=== PATIENT | male | born 1980 | race Hispanic/Latino ===

== ENCOUNTER 2022-02-27 06:27 | Day surgery (SDC) | payer OTHER ==
[2022-02-25 15:50] LABS: BASOPHILS % (AUTO) 0.2 % (0.0-5.0); EOSINOPHILS % (AUTO) 0.9 % (0.0-8.0); HEMATOCRIT 46.3 % (42-54); LYMPHOCYTES % (AUTO) 5.7 % (21.0-51.0); MEAN CORPUSCULAR HEMOGLOBIN 30.9 pg (27.0-33.0); MEAN CORPUSCULAR HGB CONC 31.5 g/dL (32.0-36.0); MEAN CORPUSCULAR VOLUME 98.1 fL (79-99); MONOCYTES % (AUTO) 5.4 % (3.0-13.0); NEUTROPHILS % (AUTO) 86.8 % (40.0-77.0); PLATELET COUNT (AUTO) 373 K/uL (130-400); RED BLOOD CELL COUNT(AUTO) 4.72 MIL/uL (4.50-6.20); RED CELL DISTRIBUTION WIDTH 13.8 % (11.0-15.5); WHITE BLOOD COUNT (AUTO) 13.2 K/uL (4.8-10.8)
[2022-02-25 16:12] LABS: INR 0.93 (0.85-1.15); PROTHROMBIN TIME 9.9 SEC (9.6-11.6)
[2022-02-25 16:13] LABS: PARTIAL THROMBOPLASTIN TIME 27.8 SEC (26.3-35.5)
[2022-02-25 16:26] LABS: CREATININE 0.9 mg/dL (0.5-1.5); POTASSIUM 4.4 mmol/L (3.5-5.1)
[2022-02-26 10:44] VITALS: BP 107/71
[~2022-02-27] VITALS: Ht 167.6 cm; Wt 62.1 kg
[2022-02-27] VITALS (17 sets, daily range): BP systolic 92–115; BP diastolic 49–73
[~2022-02-27 06:27] MED LIST: AMOX1TAB16 PO; CEFAZOLIN SODIUM 1 GM VIAL IVP SCH; GABA300C PO; LEVO750T46 PO; PRED20TA3 PO; TAMS-1 PO; URSO300C4 PO; VANC1IVPB IV
[2022-02-27] MEDS ORDERED: LACTATED RINGERS 1000ML 1,000 ML IV ONE (06:50)
[2022-02-27] MEDS ORDERED: LIDOCAINE 1%-EPI 1:100,000 20 ML VIAL IJ ONE (07:02)
[2022-02-27] MEDS ORDERED: FAMOTIDINE 20MG VIAL IV ONE (07:29)
[2022-02-27] MEDS ORDERED: FENTANYL CITRATE PF 50 MCG/1 ML 2ML VIAL ONE (07:39)
[2022-02-27] MEDS ORDERED: PROPOFOL 10 MG/ML 20ML VIAL IV ONE (07:39)
[2022-02-27] MEDS ORDERED: ROCURONIUM 10MG/1ML SYR 10 MG/ML ML ONE (07:39)
[2022-02-27] MEDS ORDERED: MIDAZOLAM HCL 1 MG/ML 2ML VIAL ONE (07:44)
[2022-02-27] MEDS ORDERED: ONDANSETRON 4MG INJ ONE (07:46)
[2022-02-27] MEDS ORDERED: MEPERIDINE-PF 25 MG/ML SYG ONE (08:18)
[2022-02-27] MEDS ORDERED: NEOSTIGMINE 5MG/5ML SYR IV ONE (09:06)
[2022-02-27] MEDS ORDERED: BACITRACIN 28.4 GM OINT TP ONE (09:17)
[2022-02-27] MEDS ORDERED: LIDOCAINE PF 100MG/5ML (2%) SYRINGE 5ML ONE (09:20)
== END 2022-02-27 11:10 | disposition home or self-care (01) ==
LOC: DAH 06:27
PROVIDERS: ATTEND Otolaryngology Plastic Surgery within the Head & Neck
DX: J86.0 Pyothorax with fistula (principal); I10 Essential (primary) hypertension; Z79.01 Long term (current) use of anticoagulants; Z79.899 Other long term (current) drug therapy; Z98.890 Other specified postprocedural states
CPT/HCPCS: 31820; 36415; 71045; 80048; 85025; 85610; 85730; 87635; 93005; A4215; A4221; A4222; A4223; A4649 ×2; A4663; A6260; C9803; J2001; J2175; J2250; J2405; J2704; J2710; J3010; J3490 ×2; J7120

== ENCOUNTER 2022-03-21 07:04 | Day surgery (SDC) | payer OTHER ==
[2022-03-21] VITALS (7 sets, daily range): BP systolic 101–111; BP diastolic 61–69
[~2022-03-21 07:04] MED LIST changes: -CEFAZOLIN SODIUM 1 GM VIAL IVP SCH
[2022-03-21] MEDS ORDERED: 0.9%NACL 1000ML 1,000 ML IV ONE (08:27)
[2022-03-21] MEDS ORDERED: FENTANYL CITRATE PF 50 MCG/1 ML 2ML VIAL ONE (08:52)
[2022-03-21] MEDS ORDERED: MIDAZOLAM HCL 1 MG/ML 2ML VIAL ONE (08:52)
== END 2022-03-21 13:48 | disposition home or self-care (01) ==
LOC: RAH 07:04 → DAH 07:04 → EDSTATUS 08:00 → RAH 13:48
PROVIDERS: ATTEND Internal Medicine Gastroenterology
DX: R93.5 Abnormal findings on diagnostic imaging of other abdominal regions, including retroperitoneum (principal); K83.8 Other specified diseases of biliary tract
CPT/HCPCS: 47000; 71045; 76942; A4215; A4216; A4221; A4222; A4223 ×3; A4606; A4663; C2615; J2250; J3010; J7030 ×2; 99152; 99153

== ENCOUNTER → 2024-01-11 | Outpatient (CLI) | payer OTHER ==
[~2024-01-11] MED LIST changes: +LEVO750T39 PO; -LEVO750T46 PO
== END | disposition home or self-care (01) ==
LOC: RAH 12:29
PROVIDERS: ATTEND Internal Medicine
DX: M19.071 Primary osteoarthritis, right ankle and foot (principal); M19.072 Primary osteoarthritis, left ankle and foot; M77.32 Calcaneal spur, left foot; Z89.422 Acquired absence of other left toe(s); M85.872 Other specified disorders of bone density and structure, left ankle and foot
CPT/HCPCS: 73620